=== PATIENT | male | born 1955 | race American Indian/Alaskan Native ===

== ENCOUNTER 2020-06-08 12:39 | Emergency (ER) | payer MEDICARE ==
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
[2020-06-08] MEDS ORDERED: EPINEPHrine 1 MG/10 ML SYRINGE ONE (19:35)
== END 2020-06-08 17:51 ==
LOC: ED 12:39
DX: I46.9 Cardiac arrest, cause unspecified (principal); I11.0 Hypertensive heart disease with heart failure; J44.9 Chronic obstructive pulmonary disease, unspecified
CPT/HCPCS: 31500; 92950; 99285; J0171